=== PATIENT | male | born 1945 | race Caucasian/White ===

== ENCOUNTER 2019-04-06 12:09 | Outpatient (CLI) | payer OTHER ==
--- NOTE | 2019-04-06 13:39 | ULT ---
Renal ultrasound: 04/06/2019 COMPARISON: CT abdomen and pelvis 04/22/2017 History: Abnormal renal function test TECHNIQUE: Multiplanar grayscale sonographic imaging of the kidneys and urinary bladder obtained. FINDINGS: The right kidney measures 11.2 cm in craniocaudal dimension. Cortical thickness is 1.4 cm o n the right. There is a cyst in the upper pole of the right kidney measuring 2.4 x 2.0 x 1.8 cm, with questionable minimal internal septation. There is no hydronephrosis noted on the right The left kidney measures 11.1 cm in craniocaudal dimension and demonstrates no hydronephrosis. There is a cyst at the upper pole of the left kidney measuring 2.6 x 4.4 x 3.9 cm. There is no hydronephrosis noted on the left. Urinary bladder appears grossly unremarkable. IMPRESSION: Bilateral renal cysts. No hydronephrosis.
== END 2019-04-06 12:10 | disposition home or self-care (01) ==
LOC: BICULT 12:09
DX: R94.4 Abnormal results of kidney function studies (principal); N28.1 Cyst of kidney, acquired
CPT/HCPCS: 76770

== ENCOUNTER 2021-07-16 13:57 | Outpatient (CLI) | payer OTHER | END 2021-07-16 13:58 | disposition home or self-care (01) | LOC: ULT 13:57 | PROVIDERS: ATTEND Chiropractor | DX: I25.10 Atherosclerotic heart disease of native coronary artery without angina pectoris (principal); I08.3 Combined rheumatic disorders of mitral, aortic and tricuspid valves | CPT/HCPCS: 93306 ==

== ENCOUNTER 2023-09-18 12:44 | Outpatient (CLI) | payer OTHER | END 2023-09-18 12:45 | disposition home or self-care (01) | LOC: BICCT 12:44 | DX: J92.0 Pleural plaque with presence of asbestos (principal); J43.9 Emphysema, unspecified; R59.0 Localized enlarged lymph nodes; J98.59 Other diseases of mediastinum, not elsewhere classified; J90 Pleural effusion, not elsewhere classified; K44.9 Diaphragmatic hernia without obstruction or gangrene; S22.079A Unspecified fracture of T9-T10 vertebra, initial encounter for closed fracture; S32.011A Stable burst fracture of first lumbar vertebra, initial encounter for closed fracture; Z72.0 Tobacco use | CPT/HCPCS: 71250 ==